=== PATIENT | male | born 1945 | race Two or more races ===

== ENCOUNTER 2018-05-29 00:42 | Inpatient (IN) | payer OTHER ==
[~2018-05-29] VITALS: Ht 167.6 cm; Wt 101.5 kg
[2018-05-29] MEDS ORDERED: ACETAMINOPHEN 325 MG TAB PO ONE ×3 (01:02→01:15)
[2018-05-29 01:56] LABS: Basophils # (auto) 0 uL; Basophils % (auto) 0.5 % (0.0-2.0); Eosinophils # (auto) 0 uL; Eosinophils % (auto) 0.5 % (0.0-7.0); Hematocrit 40.3 % (41.0-53.0); Hemoglobin 13.9 g/dL (13.5-17.5); Lymphocytes % (auto) 10.9 % (10.0-50.0); Mean Corpuscular Hemoglobin 31.5 pg (28.0-32.0); Mean Corpuscular Hgb Conc. 34.4 g/dL (32.0-36.0); Mean Corpuscular Volume 91.6 fL (80.0-100.0); Monocytes # (auto) 0.3 uL; Monocytes % (auto) 3.6 % (0.0-12.0); Neutrophils # (auto) 7.5 uL; Neutrophils % (auto) 84.5 % (37.0-80.0); Platelet Count (auto) 138 10^3/uL (140-450); Red Cell Distribution Width 13.2 % (11.8-14.3); White Blood Cell 8.9 10^3/uL (4.4-10.8)
[2018-05-29 02:13] LABS: Potassium 3.8 mmol/L (3.5-5.1)
[2018-05-29] MEDS ORDERED: ACETAMINOPHEN 500 MG TAB PO ONE ×2 (02:15)
[2018-05-29 02:17] LABS: Albumin 3.4 g/dL (3.4-5.0); BUN/Creatinine Ratio 17.9
[2018-05-29 02:20] LABS: Bilirubin, Total 1.4 mg/dL (0.2-1.0); Total Protein 7.2 g/dL (6.4-8.2)
[2018-05-29] MEDS ORDERED: IBUPROFEN 800 MG TAB PO ONE (02:30)
[2018-05-29] MEDS ORDERED: ALBUTEROL SULF 2.5 MG/0.5ML(0.5%) NEB SOLN NEB ONE (03:00)
[2018-05-29] MEDS ORDERED: SODIUM CHLORIDE 0.9% 1,000 ML IV ONE ×2 (03:00→14:15)
[2018-05-29] MEDS ORDERED: IPRATROPIUM BROM 0.5 MG/2.5ML INH SOL NEB ONE (03:00)
[2018-05-29] MEDS ORDERED: IOHEXOL 350 MG/ML 100ML IJ ONE (03:40)
[2018-05-29] MEDS ORDERED: ENOXAPARIN SOD 80 MG/0.8ML SYRINGE SC ONE (04:30)
[2018-05-29 05:07] LABS: Urine Bacteria FEW /hpf (None Seen); Urine Blood 2+ /uL (Negative); Urine Mucus FEW (None Seen); Urine WBC 158 /hpf (0 - 3)
[2018-05-29 05:09] LABS: Urine Specific Gravity > 1.050 (1.001-1.035)
[2018-05-29] MEDS ORDERED: LEVOFLOXACIN 500MG 100 ML IV ONE (07:15)
[2018-05-29] MEDS ORDERED: DEXTROSE (50%) 50ML SYRG IV PRN (14:15)
[2018-05-29] MEDS ORDERED: HYDROcodone-ACET 5/325MG TAB PO PRN (14:15)
[2018-05-29] MEDS ORDERED: ACETAMINOPHEN 500 MG TAB PO PRN (14:15)
[2018-05-29] MEDS ORDERED: cefTRIAXone 1GM/50ML D5W 50 ML IV ONE (14:15)
[2018-05-29] MEDS ORDERED: NITROGLYCERIN 0.4 MG SL TAB SL PRN (14:15)
[2018-05-29] MEDS ORDERED: MORPHINE SULFATE 4 MG/ML SYR/VIAL IV PRN ×2 (14:15)
[2018-05-29] MEDS ORDERED: ONDANSETRON HCL 4 MG/2 ML VIAL IV PRN (14:15)
[2018-05-29 16:04] VITALS: BP 142/82
[2018-05-29 17:00] VITALS: BP 142/82
[2018-05-29] MEDS ORDERED: INFLUENZA QUAD 2018-2019 0.5 ML SYRG IM ONE (17:00)
[2018-05-29] MEDS ORDERED: METF-370 PO (17:23)
[2018-05-29] MEDS: ACCU-CHEK COMFORT CURVE STRIP VI SCH ×2 (17:36→22:25)
[2018-05-29] MEDS: InsuLIN REG 1unit/0.01ml Soln (100units/ml) SC SCH ×2 (17:36→22:25)
[2018-05-29] MEDS: TAMSULOSIN HYDROCHLORIDE 0.4 MG CAP PO SCH (17:36)
[2018-05-29] MEDS: ENOXAPARIN SOD 80 MG/0.8ML SYRINGE SC SCH (17:37)
[2018-05-29 20:00] VITALS: BP 148/73
[2018-05-29 22:00] VITALS: BP 148/73
[2018-05-30 04:41] VITALS: BP 127/76
[2018-05-30 06:13] LABS: Hematocrit 39.3 % (41.0-53.0); Hemoglobin 13.2 g/dL (13.5-17.5); Mean Corpuscular Hgb Conc. 33.7 g/dL (32.0-36.0); Mean Corpuscular Volume 91.9 fL (80.0-100.0); Platelet Count (auto) 116 10^3/uL (140-450); Red Blood Cells 4.28 10^6/uL (4.5-5.90); Red Cell Distribution Width 13.5 % (11.8-14.3); White Blood Cell 13.3 10^3/uL (4.4-10.8)
[2018-05-30 06:14] LABS: Basophils % (manual) 0 (0.0-2.0); Blast Cells 0; Eosinophils % (manual) 0 (0-7); Metamyelocytes % 0; Promyelocytes % 0; Reactive Lymphocytes 0
[2018-05-30 06:33] LABS: BUN/Creatinine Ratio 20.8; Potassium 3.9 mmol/L (3.5-5.1)
[2018-05-30] MEDS: ENOXAPARIN SOD 80 MG/0.8ML SYRINGE SC SCH (06:33)
[2018-05-30] MEDS: ACCU-CHEK COMFORT CURVE STRIP VI SCH ×4 (06:55→21:21)
[2018-05-30] MEDS: InsuLIN REG 1unit/0.01ml Soln (100units/ml) SC SCH ×4 (06:55→21:21)
[2018-05-30 07:17] LABS: Band Neutrophils % (manual) 4; Lymphocytes % (manual) 23 (10.0-50.0); Monocytes % (manual) 10 (0-12); Myelocytes % 1
[2018-05-30 09:00] VITALS: BP 130/73
[2018-05-30] MEDS: cefTRIAXone 1GM/50ML D5W 50 ML IV SCH (11:14)
[2018-05-30 13:00] VITALS: BP 148/86
[2018-05-30 17:00] VITALS: BP 150/86
[2018-05-30] MEDS: TAMSULOSIN HYDROCHLORIDE 0.4 MG CAP PO SCH (17:48)
[2018-05-30] MEDS: APIXABAN 5 MG TAB PO SCH (21:21)
[2018-05-30] MEDS ORDERED: APIXABAN 5 MG TAB PO SCH (22:00)
[2018-05-30 22:23] VITALS: BP 130/74
[2018-05-31] VITALS (7 sets, daily range): BP systolic 134–150; BP diastolic 80–89
[2018-05-31 05:36] LABS: Hematocrit 39.5 % (41.0-53.0); Hemoglobin 13.8 g/dL (13.5-17.5); Mean Corpuscular Hemoglobin 31.9 pg (28.0-32.0); Mean Corpuscular Volume 91.3 fL (80.0-100.0); Platelet Count (auto) 135 10^3/uL (140-450); Red Blood Cells 4.33 10^6/uL (4.5-5.90); Red Cell Distribution Width 13.4 % (11.8-14.3); White Blood Cell 7.8 10^3/uL (4.4-10.8)
[2018-05-31 05:39] LABS: Blast Cells 0; Metamyelocytes % 0; Myelocytes % 0; Promyelocytes % 0; Reactive Lymphocytes 0
[2018-05-31 05:58] LABS: Anion Gap 7 (5-15); BUN/Creatinine Ratio 20.9; Blood Urea Nitrogen 19 mg/dL (7-18); Calcium 8.2 mg/dL (8.5-10.1); Carbon Dioxide 25 mmol/L (21-32); Chloride 105 mmol/L (98-107); GFR African American 106 mL/min; GFR Non-African American 87 mL/min; Glucose 123 mg/dL (74-106); Potassium 4.1 mmol/L (3.5-5.1); Sodium 137 mmol/L (136-145)
[2018-05-31 06:21] LABS: Band Neutrophils % (manual) 2; Basophils % (manual) 0 (0.0-2.0); Eosinophils % (manual) 4 (0-7); Lymphocytes % (manual) 12 (10.0-50.0); Monocytes % (manual) 14 (0-12)
[2018-05-31] MEDS: InsuLIN REG 1unit/0.01ml Soln (100units/ml) SC SCH ×3 (06:32→17:00)
[2018-05-31] MEDS: ACCU-CHEK COMFORT CURVE STRIP VI SCH ×3 (06:32→17:17)
[2018-05-31] MEDS: cefTRIAXone 1GM/50ML D5W 50 ML IV SCH (08:50)
[2018-05-31] MEDS: APIXABAN 5 MG TAB PO SCH (08:57)
[2018-05-31] MEDS: TAMSULOSIN HYDROCHLORIDE 0.4 MG CAP PO SCH (17:57)
[2018-06-07] MEDS ORDERED: APIXABAN 5 MG TAB PO SCH (10:00)
== END 2018-05-31 21:05 | disposition short-term general hospital (02) | DRG 871 ==
LOC: ER 00:56 → TELE 00:57 → TELE-WESTW 15:54
PROVIDERS: ADMIT Internal Medicine; ATTEND Internal Medicine
DX: A41.9 Sepsis, unspecified organism (principal); I26.99 Other pulmonary embolism without acute cor pulmonale; N39.0 Urinary tract infection, site not specified; I27.20 Pulmonary hypertension, unspecified; E11.21 Type 2 diabetes mellitus with diabetic nephropathy; E11.22 Type 2 diabetes mellitus with diabetic chronic kidney disease; N18.2 Chronic kidney disease, stage 2 (mild); Z90.49 Acquired absence of other specified parts of digestive tract
CPT/HCPCS: 36415; 36600; 71045; 71275; 80048; 80053; 81001; 82805; 82962; 83036; 83605; 83880; 84443; 84484; 85007; 85025; 85027; 85379; 87040; 87086; 87088; 87186; 90674; 93306; 93970; 94640; 96361; 96365; 96372; 96375; 99291; G0378; J0696; J1815; J1956

== ENCOUNTER 2021-06-27 06:27 | Inpatient (IN) | payer OTHER ==
[~2021-06-27] VITALS: Ht 167.6 cm; Wt 99.5 kg
[~2021-06-27 06:27] MED LIST: METF-370 PO
[2021-06-27 07:18] LABS: Basophils # (auto) 0 10 ^3/uL (0-0.2); Basophils % (auto) 0.4 % (0.0-2.0); Eosinophils # (auto) 0 10 ^3/uL (0-0.8); Eosinophils % (auto) 0.2 % (0.0-7.0); Hematocrit 42.8 % (41.0-53.0); Hemoglobin 14.2 g/dL (13.5-17.5); Lymphocytes # (auto) 2.4 10 ^3/uL (0.4-5.4); Lymphocytes % (auto) 20.4 % (10.0-50.0); Mean Corpuscular Hemoglobin 32.1 pg (28.0-32.0); Mean Corpuscular Hgb Conc. 33.2 g/dL (32.0-36.0); Mean Corpuscular Volume 96.6 fL (80.0-100.0); Monocytes # (auto) 0.1 10 ^3/uL (0-1.3); Monocytes % (auto) 1.3 % (0.0-12.0); Neutrophils % (auto) 77.7 % (37.0-80.0); Nucleated Red Blood Cells % 0.1 %; Red Blood Cells 4.43 10^6/uL (4.5-5.90); Red Cell Distribution Width 14.3 % (11.8-14.3); White Blood Cell 11.6 10^3/uL (4.4-10.8)
[2021-06-27 07:36] LABS: Calcium 8.5 mg/dL (8.5-10.1); Potassium 4.1 mmol/L (3.5-5.1)
[2021-06-27 07:41] LABS: BUN/Creatinine Ratio 16.3
[2021-06-27] MEDS ORDERED: SODIUM CHLORIDE 0.9% 1,000 ML IVB ONE (08:30)
[2021-06-27] MEDS ORDERED: SODIUM CHLORIDE 0.9% 1,000 ML IV ONE ×2 (08:30→11:00)
[2021-06-27 10:00] LABS: INR 1.21 (0.9-1.15); Partial Thromboplastin Time 27.3 sec (23.6-33.0)
[2021-06-27 10:06] LABS: Albumin 2.9 g/dL (3.4-5.0); Calcium 8.1 mg/dL (8.5-10.1); Potassium 4.7 mmol/L (3.5-5.1)
[2021-06-27 10:07] LABS: Lactic Acid w/Reflex 6.5 mmol/L (0.4-2.0)
[2021-06-27 10:09] LABS: BUN/Creatinine Ratio 19.7; Bilirubin, Total 1.1 mg/dL (0.2-1.0); Total Protein 6.2 g/dL (6.4-8.2)
[2021-06-27 10:16] LABS: Urine Bacteria FEW /hpf (None Seen); Urine Blood 2+ /uL (Negative); Urine Hyaline Cast FEW /lpf (0 - 2); Urine Mucus FEW (None Seen); Urine WBC 122 /hpf (0 - 3)
[2021-06-27] MEDS ORDERED: SODIUM CHLORIDE 0.9% 3,150 ML IV ONE (11:00)
[2021-06-27] MEDS ORDERED: FUROSEMIDE 20 MG/2 ML VIAL IV ONE (11:00)
[2021-06-27] MEDS ORDERED: cefTRIAXone 1GM/50ML D5W 50 ML IV ONE (11:00)
[2021-06-27] MEDS ORDERED: NOREPINEPHRINE 8 MG/250ML KIT 250 ML IV SCH (11:30)
[2021-06-27] MEDS ORDERED: NOREPINEPHRINE 8 MG/250ML KIT 250 ML IV ONE (11:34)
[2021-06-27] MEDS ORDERED: LIDOCAINE 2% JELLY 11ml (GLYDO) ONE (11:48)
[2021-06-27] MEDS ORDERED: LIDOCAINE 2% JELLY 11ml (GLYDO) UR ONE (12:00)
[2021-06-27] MEDS ORDERED: PIPERACILLIN-TAZOB 3.375GM 100 ML IV ONE (13:30)
[2021-06-27] MEDS ORDERED: MORPHINE SULFATE INJECTION 2 MG/ML SYRG IV PRN (16:15)
[2021-06-27] MEDS ORDERED: NITROGLYCERIN 0.4 MG SL TAB SL PRN (16:15)
[2021-06-27] MEDS ORDERED: DEXTROSE (50%) 50ML SYRG IV PRN (16:15)
[2021-06-27] MEDS ORDERED: MORPHINE SULFATE 4 MG/ML SYR/VIAL IV PRN (16:15)
[2021-06-27] MEDS ORDERED: ACETAMINOPHEN 500 MG TAB PO PRN (16:15)
[2021-06-27 19:44] LABS: Lactic Acid w/Reflex 2.1 mmol/L (0.4-2.0)
[2021-06-27] MEDS: InsuLIN REG 1unit/0.01ml Soln (100units/ml) SC SCH (20:00)
[2021-06-27] MEDS: ACCU-CHEK COMFORT CURVE STRIP VI SCH (20:44)
[2021-06-28] MEDS: ACCU-CHEK COMFORT CURVE STRIP VI SCH ×6 (01:21→20:28)
[2021-06-28] MEDS: InsuLIN REG 1unit/0.01ml Soln (100units/ml) SC SCH ×6 (04:00→20:27)
[2021-06-28 07:06] LABS: Hematocrit 37.8 % (41.0-53.0); Hemoglobin 12.6 g/dL (13.5-17.5); Mean Corpuscular Hemoglobin 30.4 pg (28.0-32.0); Mean Corpuscular Hgb Conc. 33.3 g/dL (32.0-36.0); Mean Corpuscular Volume 91.3 fL (80.0-100.0); Red Blood Cells 4.14 10^6/uL (4.5-5.90); Red Cell Distribution Width 14.5 % (11.8-14.3); White Blood Cell 26.2 10^3/uL (4.4-10.8)
[2021-06-28 07:10] LABS: Basophils % (manual) 0 (0.0-2.0); Blast Cells 0; Eosinophils % (manual) 0 (0-7); Promyelocytes % 0; Reactive Lymphocytes 0
[2021-06-28 07:21] LABS: Albumin 2.5 g/dL (3.4-5.0); BUN/Creatinine Ratio 30.1; Calcium 8.2 mg/dL (8.5-10.1); Potassium 4.3 mmol/L (3.5-5.1)
[2021-06-28 07:26] LABS: Bilirubin, Total 1.1 mg/dL (0.2-1.0); Total Protein 6.1 g/dL (6.4-8.2)
[2021-06-28 07:41] LABS: Band Neutrophils % (manual) 20; Lymphocytes % (manual) 7 (10.0-50.0); Metamyelocytes % 3; Monocytes % (manual) 1 (0-12); Myelocytes % 1
[2021-06-28] MEDS: cefTRIAXone 1GM/50ML D5W 50 ML IV SCH (08:38)
[2021-06-28 09:43] VITALS: BP 127/72
[2021-06-28] MEDS ORDERED: ENOXAPARIN SOD 100 MG/1 ML SYRINGE SC ONE (10:15)
[2021-06-28] MEDS ORDERED: FUROSEMIDE 40 MG/4 ML VIAL IV ONE (10:15)
[2021-06-28] MEDS ORDERED: AMIODARONE HCL 200 MG TAB PO ONE (10:45)
[2021-06-28 11:09] LABS: Cholesterol 76 mg/dL (< 200)
[2021-06-28 11:11] LABS: HDL Cholesterol 9 mg/dL (40-59); LDL Cholesterol 41 mg/dL (< 100); Triglycerides 169 mg/dL (< 150)
[2021-06-28 11:26] VITALS: BP 127/72
[2021-06-28 12:49] VITALS: BP 120/77
[2021-06-28] MEDS ORDERED: IOHEXOL 350 MG/ML 100ML IJ ONE (14:37)
[2021-06-28 17:15] VITALS: BP 136/78
[2021-06-28] MEDS: FUROSEMIDE 40 MG/4 ML VIAL IV SCH (17:32)
[2021-06-28 21:00] VITALS: BP 135/75
[2021-06-28] MEDS: AMIODARONE HCL 200 MG TAB PO SCH (21:40)
[2021-06-28] MEDS: SACUBITRIL-VALSARTAN 24mg/26mg TAB PO SCH (21:41)
[2021-06-28] MEDS: CARVEDILOL 3.125 MG TAB PO SCH (21:41)
[2021-06-28] MEDS ORDERED: ENOXAPARIN SOD 100 MG/1 ML SYRINGE SC SCH (22:00)
[2021-06-29] MEDS: ACCU-CHEK COMFORT CURVE STRIP VI SCH ×5 (00:04→22:22)
[2021-06-29] MEDS: InsuLIN REG 1unit/0.01ml Soln (100units/ml) SC SCH ×5 (04:31→22:33)
[2021-06-29 05:00] VITALS: BP 134/71
[2021-06-29] MEDS: FUROSEMIDE 40 MG/4 ML VIAL IV SCH ×2 (05:32→18:36)
[2021-06-29 09:00] VITALS: BP 116/73
[2021-06-29] MEDS: cefTRIAXone 1GM/50ML D5W 50 ML IV SCH (09:00)
[2021-06-29] MEDS: SACUBITRIL-VALSARTAN 24mg/26mg TAB PO SCH ×2 (10:00→22:00)
[2021-06-29] MEDS: AMIODARONE HCL 200 MG TAB PO SCH ×2 (10:00→22:22)
[2021-06-29] MEDS: CARVEDILOL 3.125 MG TAB PO SCH ×2 (10:00→22:22)
[2021-06-29 12:46] VITALS: BP 109/76
[2021-06-29 17:00] VITALS: BP 114/62
[2021-06-29 20:00] VITALS: BP 109/77
[2021-06-29 22:00] VITALS: BP 109/77
[2021-06-29] MEDS: APIXABAN 5 MG TAB PO SCH (22:22)
[2021-06-30 05:00] VITALS: BP 107/71
[2021-06-30 05:45] LABS: Hematocrit 46.1 % (41.0-53.0); Hemoglobin 15.4 g/dL (13.5-17.5); Mean Corpuscular Hemoglobin 30.8 pg (28.0-32.0); Mean Corpuscular Hgb Conc. 33.5 g/dL (32.0-36.0); Red Blood Cells 5.01 10^6/uL (4.5-5.90); Red Cell Distribution Width 14.2 % (11.8-14.3); White Blood Cell 19.2 10^3/uL (4.4-10.8)
[2021-06-30] MEDS: FUROSEMIDE 40 MG/4 ML VIAL IV SCH (05:50)
[2021-06-30 05:52] LABS: BUN/Creatinine Ratio 29.6; Calcium 8.9 mg/dL (8.5-10.1); Magnesium 2.6 mg/dL (1.6-2.6); Potassium 4.2 mmol/L (3.5-5.1)
[2021-06-30 05:53] LABS: INR 1.05 (0.9-1.15); Partial Thromboplastin Time 26.5 sec (23.6-33.0)
[2021-06-30 06:02] LABS: Basophils % (manual) 0 (0.0-2.0); Blast Cells 0; Metamyelocytes % 0; Myelocytes % 0; Promyelocytes % 0; Reactive Lymphocytes 0
[2021-06-30] MEDS: ACCU-CHEK COMFORT CURVE STRIP VI SCH ×2 (07:06→11:30)
[2021-06-30] MEDS: InsuLIN REG 1unit/0.01ml Soln (100units/ml) SC SCH ×2 (07:08→11:30)
[2021-06-30 07:25] LABS: Band Neutrophils % (manual) 10; Eosinophils % (manual) 1 (0-7); Lymphocytes % (manual) 13 (10.0-50.0); Monocytes % (manual) 5 (0-12)
[2021-06-30 08:35] VITALS: BP 110/79
[2021-06-30] MEDS: cefTRIAXone 1GM/50ML D5W 50 ML IV SCH (08:37)
[2021-06-30] MEDS: APIXABAN 5 MG TAB PO SCH (10:00)
[2021-06-30] MEDS: SACUBITRIL-VALSARTAN 24mg/26mg TAB PO SCH (10:00)
[2021-06-30] MEDS: AMIODARONE HCL 200 MG TAB PO SCH (10:00)
[2021-06-30] MEDS: CARVEDILOL 3.125 MG TAB PO SCH (10:00)
[2021-06-30 13:00] VITALS: BP 117/71
[2021-06-30 15:42] VITALS: BP 117/71
[2021-06-30 16:33] VITALS: BP 113/73
[2021-06-30 17:25] VITALS: BP 117/71
== END 2021-06-30 18:16 | disposition home health service (06) | DRG 871 ==
LOC: ER 06:27 → TELE 16:12 → TELE-CENTR 06-28 09:23
PROVIDERS: ADMIT Family Medicine; ATTEND Internal Medicine Geriatric Medicine
DX: A41.51 Sepsis due to Escherichia coli [E. coli] (principal); I21.4 Non-ST elevation (NSTEMI) myocardial infarction; I50.33 Acute on chronic diastolic (congestive) heart failure; N17.9 Acute kidney failure, unspecified; N12 Tubulo-interstitial nephritis, not specified as acute or chronic; I13.0 Hypertensive heart and chronic kidney disease with heart failure and stage 1 through stage 4 chronic kidney disease, or unspecified chronic kidney disease; E44.0 Moderate protein-calorie malnutrition; R65.20 Severe sepsis without septic shock; E11.21 Type 2 diabetes mellitus with diabetic nephropathy; E11.65 Type 2 diabetes mellitus with hyperglycemia; N18.9 Chronic kidney disease, unspecified; E66.01 Morbid (severe) obesity due to excess calories; E78.5 Hyperlipidemia, unspecified; I48.91 Unspecified atrial fibrillation; N42.9 Disorder of prostate, unspecified; R09.02 Hypoxemia; R31.0 Gross hematuria; I45.10 Unspecified right bundle-branch block; Z20.822 Contact with and (suspected) exposure to COVID-19; E11.22 Type 2 diabetes mellitus with diabetic chronic kidney disease; N40.0 Benign prostatic hyperplasia without lower urinary tract symptoms; Z79.01 Long term (current) use of anticoagulants; Z79.84 Long term (current) use of oral hypoglycemic drugs; Z79.899 Other long term (current) drug therapy; Z86.711 Personal history of pulmonary embolism; Z87.440 Personal history of urinary (tract) infections; Z68.35 Body mass index [BMI] 35.0-35.9, adult
CPT/HCPCS: 36415; 71045; 71275; 74176; 78582; 80048; 80053; 80061; 81001; 82962; 83036; 83605; 83735; 83880; 84154; 84443; 84484; 85007; 85025; 85027; 85379; 85610; 85730; 87040; 87077; 87086; 87088; 87186; 87426; 93005; 93306; 93970; 96361; 96365; 97162; 99291; G0378; J0696; J1815; J2543

== ENCOUNTER 2021-09-05 15:58 | Inpatient (IN) | payer OTHER ==
[~2021-09-05] VITALS: Ht 175.3 cm; Wt 106.2 kg
[2021-09-05 16:46] LABS: Basophils # (auto) 0 10 ^3/uL (0-0.2); Basophils % (auto) 0.2 % (0.0-2.0); Eosinophils # (auto) 0 10 ^3/uL (0-0.8); Eosinophils % (auto) 0.1 % (0.0-7.0); Hematocrit 38.8 % (41.0-53.0); Hemoglobin 13.3 g/dL (13.5-17.5); Lymphocytes # (auto) 1.2 10 ^3/uL (0.4-5.4); Mean Corpuscular Hemoglobin 31.7 pg (28.0-32.0); Mean Corpuscular Hgb Conc. 34.3 g/dL (32.0-36.0); Mean Corpuscular Volume 92.2 fL (80.0-100.0); Monocytes # (auto) 0.6 10 ^3/uL (0-1.3); Monocytes % (auto) 3.4 % (0.0-12.0); Neutrophils # (auto) 15.7 10 ^3/uL (1.6-8.6); Neutrophils % (auto) 89.3 % (37.0-80.0); Red Blood Cells 4.21 10^6/uL (4.5-5.90); Red Cell Distribution Width 14.7 % (11.8-14.3); White Blood Cell 17.6 10^3/uL (4.4-10.8)
[2021-09-05 16:57] LABS: Albumin 3.6 g/dL (3.4-5.0); Calcium 8.8 mg/dL (8.5-10.1); Potassium 3.9 mmol/L (3.5-5.1)
[2021-09-05 17:02] LABS: Bilirubin, Total 2.2 mg/dL (0.2-1.0); Total Protein 7.5 g/dL (6.4-8.2)
[2021-09-05] MEDS ORDERED: ONDANSETRON HCL 4 MG/2 ML VIAL IV ONE (17:45)
[2021-09-05 19:14] LABS: Urine Bacteria FEW /hpf (None Seen); Urine Blood 1+ /uL (Negative); Urine Mucus FEW (None Seen); Urine Specific Gravity 1.029 (1.001-1.035); Urine WBC 153 /hpf (0 - 3)
[2021-09-05] MEDS ORDERED: cefTRIAXone 1GM/50ML D5W 50 ML IV ONE (19:45)
[2021-09-05] MEDS ORDERED: AZITHROMYCIN 500MG/ 250ML 250 ML IV ONE (19:45)
[2021-09-05] MEDS ORDERED: ASPirin 325 MG TAB PO ONE (20:00)
[2021-09-05 20:37] LABS: Lactic Acid w/Reflex 4.7 mmol/L (0.4-2.0)
[2021-09-05] MEDS ORDERED: ACETAMINOPHEN 500 MG TAB PO PRN (22:15)
[2021-09-05] MEDS ORDERED: NITROGLYCERIN 0.4 MG SL TAB SL PRN (22:15)
[2021-09-05] MEDS ORDERED: MORPHINE SULFATE INJECTION 2 MG/ML SYRG IV PRN (22:15)
[2021-09-05] MEDS ORDERED: DEXTROSE (50%) 50ML SYRG IV PRN (22:15)
[2021-09-05] MEDS ORDERED: ALBUTEROL SULF HFA 90MCG INH 200DOSE IN PRN (22:15)
[2021-09-05] MEDS ORDERED: ONDANSETRON HCL 4 MG/2 ML VIAL IV PRN (22:15)
[2021-09-05] MEDS ORDERED: TEMAZEPAM 15 MG CAP PO PRN (22:15)
[2021-09-05 23:20] VITALS: BP 102/62
[2021-09-06] MEDS ORDERED: FURO40TA4 PO (00:36)
[2021-09-06] MEDS ORDERED: AMIO200T4 PO (00:36)
[2021-09-06] MEDS ORDERED: ATOR10TA52 PO (00:36)
[2021-09-06] MEDS ORDERED: APIX5TAB PO (00:36)
[2021-09-06] MEDS ORDERED: LISI-275 PO (00:36)
[2021-09-06 05:00] VITALS: BP 138/76
[2021-09-06] MEDS: ACCU-CHEK COMFORT CURVE STRIP VI SCH ×4 (05:41→22:27)
[2021-09-06] MEDS: InsuLIN REG 1unit/0.01ml Soln (100units/ml) SC SCH ×4 (05:41→22:26)
[2021-09-06 06:59] LABS: Basophils # (auto) 0 10 ^3/uL (0-0.2); Basophils % (auto) 0.1 % (0.0-2.0); Eosinophils # (auto) 0 10 ^3/uL (0-0.8); Eosinophils % (auto) 0.1 % (0.0-7.0); Hematocrit 35.6 % (41.0-53.0); Hemoglobin 12.1 g/dL (13.5-17.5); Lymphocytes # (auto) 0.4 10 ^3/uL (0.4-5.4); Lymphocytes % (auto) 4.1 % (10.0-50.0); Mean Corpuscular Hemoglobin 31.7 pg (28.0-32.0); Mean Corpuscular Volume 93.2 fL (80.0-100.0); Monocytes # (auto) 0.1 10 ^3/uL (0-1.3); Monocytes % (auto) 1.2 % (0.0-12.0); Neutrophils # (auto) 8.7 10 ^3/uL (1.6-8.6); Neutrophils % (auto) 94.5 % (37.0-80.0); Red Blood Cells 3.82 10^6/uL (4.5-5.90); Red Cell Distribution Width 14.6 % (11.8-14.3); White Blood Cell 9.2 10^3/uL (4.4-10.8)
[2021-09-06 07:09] LABS: Potassium 3.7 mmol/L (3.5-5.1)
[2021-09-06 07:14] LABS: BUN/Creatinine Ratio 20.3; Calcium 8.6 mg/dL (8.5-10.1)
[2021-09-06 07:29] LABS: Bilirubin, Total 1.8 mg/dL (0.2-1.0); Total Protein 6.3 g/dL (6.4-8.2)
[2021-09-06 08:59] VITALS: BP 121/60
[2021-09-06] MEDS: AMIODARONE HCL 200 MG TAB PO SCH (09:31)
[2021-09-06] MEDS: CARVEDILOL 3.125 MG TAB PO SCH ×2 (09:31→22:14)
[2021-09-06] MEDS: DexAMETHasone SOD PHOS 10MG/1ML VIAL INJ IV SCH (09:31)
[2021-09-06] MEDS: ZINC SULFATE 220mg CAP or TAB PO SCH (09:31)
[2021-09-06] MEDS: ASPirin 81 mg TAB PO SCH (09:31)
[2021-09-06] MEDS: CHOLECALCIFEROL (VITD3) 2,000 UNIT CAP/TAB PO SCH (09:32)
[2021-09-06] MEDS: ASCORBIC ACID 1,000 MG TAB PO SCH (09:32)
[2021-09-06] MEDS: FUROSEMIDE 40 MG TAB PO SCH (09:32)
[2021-09-06] MEDS: ENOXAPARIN SOD 40 MG/0.4 ML SYRINGE SC SCH ×2 (09:32→22:15)
[2021-09-06 13:00] VITALS: BP 145/83
[2021-09-06 17:00] VITALS: BP 132/78
[2021-09-06] MEDS ORDERED: REMDESIVIR PER PHARMACY 0 ML IV SCH (17:30)
[2021-09-06] MEDS ORDERED: REMDESIVIR 200 MG in NS 210ml LOADING DOSE ADULT IV ONE (20:00)
[2021-09-06] MEDS: cefTRIAXone 1GM/50ML D5W 50 ML IV SCH (21:30)
[2021-09-06] MEDS: ATORVASTATIN 20 MG TAB PO SCH (22:14)
[2021-09-07] MEDS: AZITHROMYCIN 500MG/ 250ML 250 ML IV SCH ×2 (00:05→22:06)
[2021-09-07 06:10] LABS: Basophils # (auto) 0 10 ^3/uL (0-0.2); Basophils % (auto) 0.1 % (0.0-2.0); Eosinophils # (auto) 0 10 ^3/uL (0-0.8); Hematocrit 36.7 % (41.0-53.0); Hemoglobin 12.4 g/dL (13.5-17.5); Lymphocytes # (auto) 1.4 10 ^3/uL (0.4-5.4); Lymphocytes % (auto) 5.9 % (10.0-50.0); Mean Corpuscular Hemoglobin 31.5 pg (28.0-32.0); Mean Corpuscular Hgb Conc. 33.7 g/dL (32.0-36.0); Mean Corpuscular Volume 93.6 fL (80.0-100.0); Monocytes # (auto) 2.1 10 ^3/uL (0-1.3); Monocytes % (auto) 8.8 % (0.0-12.0); Neutrophils # (auto) 20.2 10 ^3/uL (1.6-8.6); Neutrophils % (auto) 85.2 % (37.0-80.0); Red Blood Cells 3.92 10^6/uL (4.5-5.90); Red Cell Distribution Width 14.5 % (11.8-14.3); White Blood Cell 23.8 10^3/uL (4.4-10.8)
[2021-09-07 06:15] LABS: Calcium 9.1 mg/dL (8.5-10.1); Potassium 4.3 mmol/L (3.5-5.1)
[2021-09-07 06:18] LABS: BUN/Creatinine Ratio 26.7
[2021-09-07 06:20] LABS: Bilirubin, Total 0.8 mg/dL (0.2-1.0); Total Protein 6.8 g/dL (6.4-8.2)
[2021-09-07] MEDS: ACCU-CHEK COMFORT CURVE STRIP VI SCH ×4 (06:31→22:09)
[2021-09-07] MEDS: InsuLIN REG 1unit/0.01ml Soln (100units/ml) SC SCH ×4 (06:31→22:09)
[2021-09-07 09:00] VITALS: BP 124/73
[2021-09-07] MEDS: DexAMETHasone SOD PHOS 10MG/1ML VIAL INJ IV SCH (10:24)
[2021-09-07] MEDS: ZINC SULFATE 220mg CAP or TAB PO SCH (10:24)
[2021-09-07] MEDS: AMIODARONE HCL 200 MG TAB PO SCH (10:24)
[2021-09-07] MEDS: ASPirin 81 mg TAB PO SCH (10:24)
[2021-09-07] MEDS: FUROSEMIDE 40 MG TAB PO SCH (10:25)
[2021-09-07] MEDS: CARVEDILOL 3.125 MG TAB PO SCH ×2 (10:25→22:08)
[2021-09-07] MEDS: ENOXAPARIN SOD 40 MG/0.4 ML SYRINGE SC SCH ×2 (10:25→22:09)
[2021-09-07] MEDS: CHOLECALCIFEROL (VITD3) 2,000 UNIT CAP/TAB PO SCH (10:25)
[2021-09-07] MEDS: ASCORBIC ACID 1,000 MG TAB PO SCH (10:25)
[2021-09-07 13:00] VITALS: BP 127/64
[2021-09-07] MEDS: REMDESIVIR 100mg 100 MG in SODIUM CHL 0.9% 230 ML IV SCH (15:25)
[2021-09-07 17:00] VITALS: BP 134/78
[2021-09-07] MEDS: cefTRIAXone 1GM/50ML D5W 50 ML IV SCH (20:52)
[2021-09-07 22:00] VITALS: BP 124/72
[2021-09-07] MEDS: ATORVASTATIN 20 MG TAB PO SCH (22:07)
[2021-09-08 05:00] VITALS: BP 123/81
[2021-09-08 06:17] LABS: Basophils # (auto) 0 10 ^3/uL (0-0.2); Basophils % (auto) 0.1 % (0.0-2.0); Eosinophils # (auto) 0 10 ^3/uL (0-0.8); Hematocrit 36.2 % (41.0-53.0); Hemoglobin 12.1 g/dL (13.5-17.5); Lymphocytes # (auto) 1.8 10 ^3/uL (0.4-5.4); Lymphocytes % (auto) 9.5 % (10.0-50.0); Mean Corpuscular Hemoglobin 31.4 pg (28.0-32.0); Mean Corpuscular Hgb Conc. 33.6 g/dL (32.0-36.0); Mean Corpuscular Volume 93.6 fL (80.0-100.0); Monocytes # (auto) 1.4 10 ^3/uL (0-1.3); Monocytes % (auto) 7.4 % (0.0-12.0); Neutrophils # (auto) 16.1 10 ^3/uL (1.6-8.6); Red Blood Cells 3.87 10^6/uL (4.5-5.90); Red Cell Distribution Width 14.9 % (11.8-14.3); White Blood Cell 19.4 10^3/uL (4.4-10.8)
[2021-09-08] MEDS: InsuLIN REG 1unit/0.01ml Soln (100units/ml) SC SCH ×2 (06:29→12:17)
[2021-09-08] MEDS: ACCU-CHEK COMFORT CURVE STRIP VI SCH ×2 (06:30→12:13)
[2021-09-08 06:34] LABS: Albumin 3.1 g/dL (3.4-5.0); Calcium 8.8 mg/dL (8.5-10.1)
[2021-09-08 06:39] LABS: BUN/Creatinine Ratio 30.4; Bilirubin, Total 0.5 mg/dL (0.2-1.0); Total Protein 6.8 g/dL (6.4-8.2)
[2021-09-08 08:34] VITALS: BP 126/79
[2021-09-08] MEDS: AMIODARONE HCL 200 MG TAB PO SCH (09:40)
[2021-09-08] MEDS: ZINC SULFATE 220mg CAP or TAB PO SCH (09:41)
[2021-09-08] MEDS: FUROSEMIDE 40 MG TAB PO SCH (09:41)
[2021-09-08] MEDS: ASPirin 81 mg TAB PO SCH (09:41)
[2021-09-08] MEDS: CHOLECALCIFEROL (VITD3) 2,000 UNIT CAP/TAB PO SCH (09:42)
[2021-09-08] MEDS: CARVEDILOL 3.125 MG TAB PO SCH (09:42)
[2021-09-08] MEDS: ASCORBIC ACID 1,000 MG TAB PO SCH (09:43)
[2021-09-08] MEDS: ENOXAPARIN SOD 40 MG/0.4 ML SYRINGE SC SCH (09:43)
[2021-09-08] MEDS: DexAMETHasone SOD PHOS 10MG/1ML VIAL INJ IV SCH (09:43)
[2021-09-08] MEDS ORDERED: ASCO500T11 GT (14:56)
[2021-09-08] MEDS ORDERED: ZINC220C10 PO (14:56)
[2021-09-08] MEDS ORDERED: CHOL20007 OR (14:56)
[2021-09-08] MEDS ORDERED: DEXA6TAB6 PO (14:56)
[2021-09-08] MEDS ORDERED: LEVO250T69 PO (14:56)
[2021-09-08] MEDS: REMDESIVIR 100mg 100 MG in SODIUM CHL 0.9% 230 ML IV SCH (15:00)
[2021-09-08 15:44] VITALS: BP 126/80
== END 2021-09-08 16:50 | disposition home or self-care (01) | DRG 871 ==
LOC: ER 15:58 → TELE 22:10 → TELE-WESTW 23:20
PROVIDERS: ADMIT Nurse Practitioner; ATTEND Internal Medicine Geriatric Medicine
PROC: XW033E5 Introduction of Remdesivir Anti-infective into Peripheral Vein, Percutaneous Approach, New Technology Group 5 (ICD-10-PCS; principal; 2021-09-06)
DX: A41.89 Other specified sepsis (principal); U07.1 COVID-19; J12.82 Pneumonia due to coronavirus disease 2019; J96.01 Acute respiratory failure with hypoxia; N39.0 Urinary tract infection, site not specified; N17.9 Acute kidney failure, unspecified; I48.91 Unspecified atrial fibrillation; E11.9 Type 2 diabetes mellitus without complications; I50.9 Heart failure, unspecified; Z86.718 Personal history of other venous thrombosis and embolism; Z90.49 Acquired absence of other specified parts of digestive tract; Z79.01 Long term (current) use of anticoagulants; Z23 Encounter for immunization; Z79.84 Long term (current) use of oral hypoglycemic drugs
CPT/HCPCS: 36415; 71045; 80053; 81001; 82728; 82962; 83605; 83735; 83880; 84484; 85025; 85379; 87040; 87086; 87426; 93005; 94640; 96365; 96375; G0378; J0696; J1100; J1815; J2405

== ENCOUNTER 2023-06-08 08:09 | Emergency (ER) | payer OTHER ==
[~2023-06-08] VITALS: Ht 172.7 cm; Wt 107.0 kg
[~2023-06-08 08:09] MED LIST changes: +AMIO200T13 PO; +APIX5TAB PO; +ASCO500T11 GT; +ATOR10TA52 PO; +CHOL20007 OR; +DEXA6TAB6 PO; +FURO40TA4 PO; +LEVO250T58 PO; +LISI-275 PO; +ZINC220C10 PO
[2023-06-08 08:10] VITALS: BP 158/79; PULSE 72; RESP 18; TEMP 97.5; O2SAT 96
[2023-06-08 09:11] LABS: Urine Bacteria FEW /hpf (None Seen); Urine Blood 3+ /uL (Negative); Urine Clarity Clear (Clear); Urine Hyaline Cast FEW /lpf (0 - 2); Urine Protein, UAD Negative (Negative); Urine Specific Gravity 1.008 (1.001-1.035); Urine Urobilinogen Normal (Negative); Urine WBC 15 /hpf (0 - 3); Urine pH 5.5 (5.0-8.0)
[2023-06-08 09:12] LABS: Urine Color STRAW (Yellow)
[2023-06-08] MEDS ORDERED: CIPR-173 PO (09:29)
== END 2023-06-08 09:40 | disposition home or self-care (01) ==
LOC: ER 08:09
DX: N39.0 Urinary tract infection, site not specified (principal); R33.9 Retention of urine, unspecified; I50.9 Heart failure, unspecified; E11.9 Type 2 diabetes mellitus without complications; Z90.49 Acquired absence of other specified parts of digestive tract; Z79.2 Long term (current) use of antibiotics; Z79.899 Other long term (current) drug therapy
CPT/HCPCS: 51702; 81001